=== PATIENT | female | born 1955 | race Caucasian/White ===

== ENCOUNTER → 2018-03-15 | Outpatient (CLI) | payer BC ==
--- NOTE | 2018-03-15 13:08 | XR ---
EXAMINATION TYPE: XR knee complete LT DATE OF EXAM: 03/15/2018 CLINICAL HISTORY: Pain for months after fall injury TECHNIQUE: Three views of the left knee are obtained. COMPARISON: None. FINDINGS: There is no acute fracture/dislocation evident in left knee. Mild tricompartment joint spa ce loss is present. No significant spurring is seen. The overlying soft tissue appears unremarkable. IMPRESSION: There is no acute fracture or dislocation in the left knee.
== END ==
LOC: RADXRMAIN 10:20
PROVIDERS: ATTEND Family Medicine
DX: S80.02XA Contusion of left knee, initial encounter (principal)

== ENCOUNTER → 2018-12-29 | Outpatient (CLI) | payer BC ==
--- NOTE | 2018-12-29 13:16 | MR ---
EXAMINATION TYPE: MR knee RT wo con DATE OF EXAM: 12/29/2018 COMPARISON: None HISTORY: Right knee pain TECHNIQUE: Multiplanar, multisequence images of the knee is performed without IV contrast. FINDINGS: MEDIAL MENISCUS: Anterior and posterior horns are intact without tear. Myxoid degeneration posterior horn medial meniscus. LATERAL MENISCUS: Anterior and posterior horns are intact without tear. CRUCIATE LIGAMENTS: The anterior and posterior cruciate ligaments are intact and unremarkable. COLLATERAL LIGAMENTS: The medial collateral ligament and lateral collateral ligament complex are inta ct and unremarkable. EXTENSOR MECHANISM: Visualized quadriceps and patellar tendons are intact. EFFUSION: No significant suprapatellar joint effusion. POPLITEAL CYST: Alexander's cyst noted measuring 2.7 cm in length. TRICOMPARTMENT SPACES: Mild narrowing medial tibiofemoral joint space with mild cartilaginous thinnin g. CARTILAGE: Intact BONE MARROW SIGNAL: No focal abnormal marrow signal is appreciated. OTHER: No additional significant abnormality is appreciated. IMPRESSION: 1. 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 2. Mild changes of osteoarthritis. 3. Alexander's cyst.
== END | disposition home or self-care (01) ==
LOC: RADMRIMAIN 12:00
PROVIDERS: ATTEND Orthopaedic Surgery
DX: M23.321 Other meniscus derangements, posterior horn of medial meniscus, right knee (principal); M17.11 Unilateral primary osteoarthritis, right knee; M71.21 Synovial cyst of popliteal space [Baker], right knee

== ENCOUNTER → 2019-02-01 | Outpatient (CLI) | payer BC ==
[2019-02-01 09:01] LABS: Basophils # (A) 0.1 k/uL (0-0.2); Basophils % (A) 1 %; Eosinophils # (A) 0.1 k/uL (0-0.7); Eosinophils % (A) 3 %; HCT 41.7 % (34.0-46.0); HGB 13.4 gm/dL (11.4-16.0); Lymphocytes # (A) 1.6 k/uL (1.0-4.8); Lymphocytes % (A) 37 %; MCH 30.8 pg (25.0-35.0); MCV 96.1 fL (80.0-100.0); Mean Platelet Volume 7.4; Monocytes # (A) 0.2 k/uL (0-1.0); Monocytes % (A) 5 %; Neutrophils # (A) 2.1 k/uL (1.3-7.7); Neutrophils % (A) 52 %; Platelet Count 217 k/uL (150-450); RBC 4.34 m/uL (3.80-5.40); WBC 4.2 k/uL (3.8-10.6)
[2019-02-01 09:10] LABS: Potassium 4.5 mmol/L (3.5-5.1)
== END | disposition home or self-care (01) ==
LOC: LABPAT 08:37
PROVIDERS: ATTEND Orthopaedic Surgery
DX: Z01.818 Encounter for other preprocedural examination (principal); Z01.812 Encounter for preprocedural laboratory examination; M23.91 Unspecified internal derangement of right knee
CPT/HCPCS: 80051; 85025; 93005

== ENCOUNTER 2019-02-08 13:52 | Day surgery (SDC) | payer BC ==
[2019-02-06 10:02] VITALS: BMI 22.6
--- NOTE | 2019-02-07 17:25 | HP ---
HISTORY AND PHYSICAL DATE OF SURGERY: 02/08/2019 Bridgett Almendarez is a 63-year-old patient seen with progressive right knee pain. Treatment options were discussed with her. She elected to proceed with right knee arthroscopy. Consent regarding the procedure was obtained. PAST MEDICAL HISTORY: Hypertension, hypothyroidism. PAST SURGICAL HISTORY: Left knee arthroscopy, left shoulder arthroscopy. MEDICATIONS: Synthroid, anti-hypertensive. ALLERGIES: NONE. SOCIAL HISTORY: She denies current tobacco use. PHYSICAL EVALUATION OF THE RIGHT KNEE: Range of motion is 0 to 130 degrees. Mild effusion. There is tenderness along the medial joint line. There is positive medial Romina's. Her ligaments are stable. Hip rotation is without pain. Distal neurovascular exam is intact. RADIOGRAPHS: Radiographs of the right knee revealed mild to moderate osteoarthritic changes. Right knee MRI revealed abnormal signal of medial meniscus along with a Alexander cyst. IMPRESSION: Internal derangement of the right knee with medial meniscal tear. PLAN: Right knee arthroscopy with partial meniscectomy and debridement. MMODL / IJN: [id number] /
[~2019-02-08 13:52] MED LIST: DEXAMETHASONE SOD PHOSPHATE 10 MG/ML 1 ML VIAL IV ONE; HYDROmorphone 0.5 MG/0.5 ML SYRINGE IVP PRN; LACTATED RINGERS 1,000 ML IV SCH; LIDOCAINE 1% 20 ML VIAL (10MG/ML) FOR IV START INTRADERMA PRN; MIDAZOLAM 2 MG/2 ML VIAL IV PRN; ONDANSETRON 4 MG/2 ML VIAL IVP ONE; SCOPOLAMINE 1.5MG/72HR PATCH TRANSDERM ONE
[2019-02-08] MEDS ORDERED: PROPOFOL 10 MG/ML 20 ML VIAL IV ONE (14:45)
[2019-02-08] MEDS ORDERED: MIDAZOLAM 2 MG/2 ML VIAL ONE (14:45)
[2019-02-08] MEDS ORDERED: ePHEDrine SULFATE/0.9% NACL/PF 50 MG/5 ML SYRINGE IV ONE (14:45)
[2019-02-08] MEDS ORDERED: SUCCINYLCHOLINE CHLORIDE 100 MG/5 ML SYR IV ONE (14:45)
[2019-02-08] MEDS ORDERED: fentaNYL (PF) 50 MCG/ML 2 ML AMP ONE (14:45)
[2019-02-08] MEDS ORDERED: LIDOCAINE 1% INJ 10MG/ML (20 ML MDV) ONE (14:45)
[2019-02-08] MEDS ORDERED: BUPIVACAINE (PF) 0.5% 30 ML VIAL INTRAARTIC ONE (15:01)
--- NOTE | 2019-02-08 15:47 | P.OP ---
Date of Procedure: 02/08/19 Preoperative Diagnosis: Internal derangement right knee Postoperative Diagnosis: 1. Tear medial meniscus right knee 2. Grade 2/3 chondromalacia medial femoral condyle right knee 3. Medial plica right knee 4. Reactive synovitis medial, lateral and suprapatellar compartments right knee Procedure(s) Performed: 1. Arthroscopic partial medial meniscectomy right knee 2. Arthroscopic chondroplasty medial femoral condyle right knee 3. Arthroscopic resection medial plica right knee 4. Arthroscopic partial synovectomy medial, lateral and suprapatellar compartments right knee Anesthesia: SINAIA, local Surgeon: Ruy Borja Estimated Blood Loss (ml): 7 Pathology: none sent Condition: stable Disposition: PACU Indications for Procedure: 63-year-old patient seen with progressive right knee pain. After treatment options were discussed, she elected to proceed with arthroscopy. Operative Findings: see description of procedure Description of Procedure: Patient was taken to the operative suite. Patient underwent a general anesthetic by the department of anesthesia. Patient was given preoperative antibiotics. The right lower extremity was placed in a well-padded arthroscopic leg ward. The right leg was prepped and draped in the normal sterile orthopedic fashion. A lateral parapatellar and suprapatellar incision was made. Trochars were inserted. Arthroscopy was initiated. Suprapatellar pouch revealed diffuse thick reactive synovitis. The patellofemoral joint appeared to articulate congruently. There was mild grade 1 chondromalacia with no osteochondral tears present. The scope was guided into the medial gutter. There was a plica noted along the medial femoral condyle. It did impinge the medial femoral condyle with range of motion. The scope was then guided into the medial compartment. A medial parapatellar incision was made. Trocar inserted followed by probe. There was a complex tear posterior horn medial meniscus. There was an area of grade 2/3 chondromalacia weightbearing surface medial femoral condyle with some osteochondral flap tears present. There was reactive synovitis anteriorly. I performed a partial medial meniscectomy down to stable tissue. I performed a chondroplasty of the medial femoral condyle down to stable tissue. I performed a partial synovectomy decompressing the reactive synovitis. The residual meniscus was stable. The residual osteochondral surface was stable. Her was good decompression of the synovitis. Scope and probe were then guided into the intercondylar notch. Cruciates were identified, probed and found to be stable. The scope and probe were then guided into lateral compartment. The lateral meniscus was found to be stable. There was some reactive synovitis anteriorly. There was no significant chondromalacia present. I performed a partial synovectomy decompressing the reactive synovitis. There was good decompression of the synovitis. The scope was in guided back into the suprapatellar compartment. I introduced a motorized shaver into the suprapatellar compartment. I resected that medial plica. I debrided some piecemeal fragments of meniscus I encountered. I performed a partial synovectomy decompressing the reactive synovitis. Shaver was removed. The knee was taken through range of motion. There was complete resection of the plica. There was good decompression of synovitis. I took one more look around the entire knee, no residual debris. Instruments were now removed from the joint. The joint was infiltrated with .25% Marcaine. Steri-Strips were applied to the portal sites. Sterile dressings were applied. The patient was placed into a SHANTE hose. No tourniquet was utilized. The patient was awakened, transferred to a bed and taken to recovery stable satisfactory condition.
[2019-02-08 15:51] VITALS: TEMP 97.1
[2019-02-08] MEDS ORDERED: LACTATED RINGERS 1,000 ML IV ONE (16:00)
[2019-02-08] MEDS ORDERED: ONDANSETRON 4 MG/2 ML VIAL IVP ONE (16:25)
[2019-02-08 17:06] VITALS: RESP 16
[2019-02-08 17:37] VITALS: BP 139/83; PULSE 93
== END 2019-02-08 17:45 | disposition home or self-care (01) ==
LOC: OR 13:52
PROVIDERS: ATTEND Orthopaedic Surgery
DX: M23.321 Other meniscus derangements, posterior horn of medial meniscus, right knee (principal); M94.261 Chondromalacia, right knee; M67.51 Plica syndrome, right knee; M65.861 Other synovitis and tenosynovitis, right lower leg; I10 Essential (primary) hypertension; E03.9 Hypothyroidism, unspecified; Z79.890 Hormone replacement therapy; Z79.899 Other long term (current) drug therapy
CPT/HCPCS: 29881; J2250; J1100; J2405; J0690; J2001; J3010; J0330; J2704; J1170

== ENCOUNTER → 2021-04-28 | Outpatient (CLI) | payer BC ==
--- NOTE | 2021-04-29 04:07 | MR ---
EXAMINATION TYPE: MR shoulder RT wo con DATE OF EXAM: 04/28/2021 COMPARISON: None HISTORY: Right Shoulder Pain Multiplanar multiecho imaging of the right shoulder without contrast. There is shoulder joint effusion. Subscapularis tendon is intact. Biceps tendon is intact. Glenoid la bra appear intact. There is 5 mm degenerative cyst in the greater tuberosity of the humerus. The supraspinatus tendon is intact. There is no retraction. There is some shoulder joint space narrowing. There is no evidence o f a fracture. I see no focal bone destruction. IMPRESSION: No evidence of rotator cuff tear. No fracture. There is some osteoarthritic joint space narrowing at the glenohumeral joint. Shoulder joint moderate effusion consistent with nonspecific synovitis.
== END | disposition home or self-care (01) ==
LOC: RADMRIMAIN 10:59
PROVIDERS: ATTEND Orthopaedic Surgery
DX: M19.011 Primary osteoarthritis, right shoulder (principal)

== ENCOUNTER → 2021-05-27 | Outpatient (CLI) | payer BC ==
--- NOTE | 2021-05-27 12:09 | EST ---
EXERCISE STRESS AGE: 65 SEX: F HT: 5'2" WT: 127 lbs. PROTOCOL: Marc STAGE: 3 DURATION OF EXERCISE: 9:00 HEART RATE REST: 82 BLOOD PRESSURE REST: 129/90 MAXIMUM HEART RATE ACHIEVED: 158 MAXIMUM BLOOD PRESSURE: 197/88 85% MPHR: 138 100% MPHR: 157 METS: 10.3 INDICATIONS: Chest pain. CLINICAL INFORMATION: Baseline EKG shows sinus rhythm with poor R-wave progression. Patient exercised on Marc protocol for a total of 9 minutes, achieving 10 METS, 100% of predicted maximal heart rate, without chest pain or diagnostic ST-segment depression. CONCLUSIONS: 1. Good exercise tolerance. 2. Negative stress test by EKG criteria. MMODL / IJN: [id number] /
== END | disposition home or self-care (01) ==
LOC: RADNMMAIN 08:31
PROVIDERS: ATTEND Family Medicine
DX: R07.9 Chest pain, unspecified (principal)
CPT/HCPCS: 93017

== ENCOUNTER → 2021-08-14 | Outpatient (CLI) | payer BC ==
[2021-08-14 11:57] LABS: Basophils # (A) 0.1 k/uL (0-0.2); Basophils % (A) 1 %; Eosinophils # (A) 0.1 k/uL (0-0.7); Eosinophils % (A) 2 %; HCT 40.5 % (34.0-46.0); HGB 14.4 gm/dL (11.4-16.0); Lymphocytes # (A) 1.9 k/uL (1.0-4.8); Lymphocytes % (A) 38 %; MCH 33.3 pg (25.0-35.0); MCHC 35.6 g/dL (31.0-37.0); MCV 93.4 fL (80.0-100.0); Mean Platelet Volume 6.9; Monocytes # (A) 0.3 k/uL (0-1.0); Monocytes % (A) 5 %; Neutrophils # (A) 2.6 k/uL (1.3-7.7); Neutrophils % (A) 52 %; Platelet Count 281 k/uL (150-450); RBC 4.33 m/uL (3.80-5.40); RDW 12.8 % (11.5-15.5)
[2021-08-14 12:12] LABS: Potassium 3.8 mmol/L (3.5-5.1)
== END | disposition home or self-care (01) ==
LOC: LABPAT 10:51
PROVIDERS: ATTEND Orthopaedic Surgery
DX: Z01.812 Encounter for preprocedural laboratory examination (principal); M75.41 Impingement syndrome of right shoulder
CPT/HCPCS: 80051; 85025; 93005

== ENCOUNTER 2021-08-19 06:21 | Day surgery (SDC) | payer BC ==
[2021-08-14 15:17] VITALS: BMI 23.8
--- NOTE | 2021-08-18 20:22 | HP ---
HISTORY AND PHYSICAL DATE OF SURGERY: 08/19/2021 Bridgett Almendarez is a 65-year-old patient seen with progressive right shoulder pain. We discussed options for treatment. She elected to proceed with right shoulder arthroscopy. Consent was obtained. PAST MEDICAL HISTORY: Hypothyroidism. PAST SURGICAL HISTORY: Bilateral shoulder arthroscopy, knee arthroscopy. DAILY MEDICATIONS: Synthroid, ibuprofen. ALLERGIES: NONE. SOCIAL HISTORY: She denies tobacco use. PHYSICAL EVALUATION OF THE RIGHT SHOULDER: Flexion is 150 degrees, abduction is 140 degrees, external rotation is 30 degrees with some pain and weakness. There is tenderness along the anterolateral acromion and rotator cuff insertion site. Impingement is positive at 90 degrees. Drop-arm sign is positive. Cross-body adduction sign is positive. Radiographs of the right shoulder reveal cystic changes of the tuberosity. MRI of right shoulder: Moderate effusion, osteoarthritic changes. IMPRESSION: 1. Right shoulder impingement with possible rotator cuff tear. 2. Right shoulder glenohumeral osteoarthritis with labral tear. 3. Hypothyroidism. PLAN: Right shoulder arthroscopy with subacromial decompression, possible rotator cuff repair and debridement. MMODL / IJN: [id number] /
[2021-08-19] MEDS ORDERED: MIDAZOLAM 2 MG/2 ML VIAL IV PRN (06:43)
[2021-08-19] MEDS ORDERED: DEXAMETHASONE SOD PHOSPHATE 4 MG/ML 1 ML VIAL IV ONE (06:43)
[2021-08-19] MEDS ORDERED: LACTATED RINGERS 1,000 ML IV SCH (06:43)
[2021-08-19] MEDS ORDERED: ONDANSETRON 4 MG/2 ML VIAL IVP ONE (06:43)
[2021-08-19] MEDS ORDERED: SCOPOLAMINE 1.5MG/72HR PATCH TRANSDERM ONE (07:00)
[2021-08-19] MEDS ORDERED: HYDROmorphone 0.5 MG/0.5 ML SYRINGE IVP PRN (07:00)
[2021-08-19] MEDS ORDERED: LIDOCAINE 1% (10MG/ML) FOR IV START INTRADERMA ONE (07:07)
[2021-08-19] MEDS ORDERED: .fentaNYL (PF) 50 MCG/ML AMP IV ONE (07:31)
[2021-08-19] MEDS ORDERED: ROPIVACAINE 5 MG/ML 30 ML VIAL ONE (07:50)
[2021-08-19] MEDS ORDERED: ePHEDrine 50 MG/ML 1 ML AMP ONE (07:50)
[2021-08-19] MEDS ORDERED: PROPOFOL 10 MG/ML 20 ML VIAL IV ONE (07:50)
[2021-08-19] MEDS ORDERED: LIDOCAINE 1% INJ 10MG/ML (20 ML MDV) ONE (07:50)
[2021-08-19] MEDS ORDERED: ceFAZolin 1,000 MG VIAL ONE (07:50)
[2021-08-19] MEDS ORDERED: .fentaNYL (PF) 50 MCG/ML AMP ONE (07:50)
[2021-08-19] MEDS ORDERED: MIDAZOLAM 2 MG/2 ML VIAL ONE (07:50)
[2021-08-19] MEDS ORDERED: SUCCINYLCHOLINE CHLORIDE 100 MG/5 ML SYR IV ONE (07:50)
[2021-08-19] MEDS ORDERED: LACTATED RINGERS 1,000 ML IV ONE (08:26)
[2021-08-19 09:25] VITALS: TEMP 97.5
--- NOTE | 2021-08-19 09:25 | P.OP ---
Date of Procedure: 08/19/21 Preoperative Diagnosis: Left shoulder impingement Postoperative Diagnosis: 1. Right shoulder impingement 2. Right shoulder grade 2/3 chondromalacia humeral head 3. 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 Right shoulder superficial anterior labral tear Procedure(s) Performed: 1. Right shoulder arthroscopic subacromial decompression 2. Right shoulder arthroscopic chondroplasty humeral head and glenoid fossa 3. Right shoulder arthroscopic microfracture glenoid fossa 4. Right shoulder arthroscopic debridement superficial labral tear Anesthesia: GETA, regional (Interscalene block) Surgeon: Ruy Borja Estimated Blood Loss (ml): 8 Pathology: none sent Condition: stable Disposition: PACU Indications for Procedure: 65-year-old patient seen with progressive right shoulder pain. After having treatment options discussed, she elected to proceed with arthroscopy. Operative Findings: See description of procedure Description of Procedure: Patient underwent an interscalene block by department of anesthesia. The patient was then taken to the operative suite. The patient underwent a general anesthetic by the department of anesthesia. The patient was placed into a lateral position and secured. There was appropriate padding of the bony prominence. Right shoulder was then prepped and draped in normal sterile orthopedic fashion. We placed the extremity in 10 pounds of longitudinal tracti on. A posterior incision was now made for a posterior working portal site. The trocar and cannula were inserted into the glenohumeral joint. Arthroscopy was initiated. Spinal needle was now inserted anteriorly, to ascertain the anterior working portal site. An incision was now made in that area, a trocar was inserted followed by a probe. There were grade 2/3 chondromalacia changes of the humeral head with some small osteochondral tears present. There was near grade 4 chondromalacia central aspect glenoid fossa with a large osteochondral flap tear present. There was some superficial fraying/tearing of the anterior labrum. The long head biceps tendon was absent. There were no loose bodies. I performed a chondroplasty of both the humeral head and glenoid fossa getting down to stable osteochondral tissue. I debrided out the superficial labral tear. Residual labrum was now probed and found to be stable. I performed a microfracture to the central area of the glenoid penetrating the bone with resultant bleeding at the microfracture site. I removed all instruments from glenohumeral joint at this time. Utilizing the posterior working portal site, the trocar and cannula were inser bertrand into the subacromial space. Arthroscopy initiated. I made an incision 2 fingerbreadths lateral to the acromion. I introduced my trocar followed by my [employer] ablator. I now began ablating thick subacromial bursal tissue, which exposed the undersurface of the anterior acromion. There was diminished subacromial space. I now introduced a motorized bur and performed a subacromial decompression. The bur was removed. There was an adequate subacromial decompression noted. I now began probing the rotator cuff tendon. There was some superficial fraying which I debrided out with a motorized shaver. Upon thoroughly probing the tendon there was no evidence for tear. Instruments now removed from the portal sites. All portal sites were approximated with nylon suture. Sterile dressings were applied followed by a shoulder sling. The patient was awakened, transferred to a bed, and taken to recovery in stable condition.
[2021-08-19 09:30] VITALS: RESP 16
--- NOTE | 2021-08-19 09:39 | P.ANPRN ---
Procedure Note - Anesthesia - Nerve Block Performed Right Interscalene Single Time Out Performed: Yes ([id number]) Date of Procedure: 08/19/21 Procedure Start Time: :31 Procedure Stop Time: :40 Location of Patient: PreOp Indication: Acute Post-Operative Pain, Requested by Surgeon Specifically requested for management of pain by DrGerman: Ruy Borja Sedation Type: Sedate with meaningful contact maintained Preparation: Sterile Prep Position: Supine Catheter: None Needle Types: Pajunk Needle Gauge: 21 Ultrasound used to visualize needle placement: Yes Ultrasound used to observe medication spread: Yes Injectate: 0.5% Ropivacaine (see comment for volume) (30cc) Blood Aspirated: No Pain Paresthesia on Injection Noted: No Resistance on Injection: Normal Image Stored and Saved: Yes Events: Uneventful and Well Tolerated
[2021-08-19 10:29] VITALS: BP 125/81; PULSE 72
== END 2021-08-19 11:00 | disposition home or self-care (01) ==
LOC: OR 06:21
PROVIDERS: ATTEND Orthopaedic Surgery
DX: S43.491A Other sprain of right shoulder joint, initial encounter (principal); M25.811 Other specified joint disorders, right shoulder; I10 Essential (primary) hypertension; M94.211 Chondromalacia, right shoulder; E03.9 Hypothyroidism, unspecified; Z79.899 Other long term (current) drug therapy
CPT/HCPCS: 64415; 76942; 29822; J2250; J1100; J2405; J0690; J2001; J3010; J2795; J0330; J2704